=== PATIENT | male | born 1965 | race Caucasian/White ===

== ENCOUNTER 2017-04-17 09:50 | Outpatient (CLI) | payer BC ==
[~2017-04-17] VITALS: Ht 179.1 cm; Wt 124.5 kg
[2017-04-17 10:00] VITALS: BP 130/61; PULSE 77; RESP 18; Ht 179.1 cm; Wt 124.5 kg
[2017-04-17] MEDS ORDERED: ATOR10TA65 PO (10:11)
[2017-04-17] MEDS ORDERED: NEBI5TAB9 PO (10:11)
[2017-04-17] MEDS ORDERED: MONT10TA21 PO (10:11)
[2017-04-17] MEDS ORDERED: LISI20TA11 PO (10:11)
[2017-04-17] MEDS ORDERED: AMLO1TAB15 PO (10:11)
--- NOTE | 2017-04-17 11:34 | CONS ---
[facility] INITIAL OUTPATIENT CONSULTATION NOTE DATE OF CONSULTATION: 04/17/2017 PLACE OF SERVICE: [facility] IMPRESSION AND PLAN: A very pleasant 52-year-old gentleman with a few comorbidities including BMI of 38.8, presenting with an incidentally discovered gallbladder polyps which appeared to be multiple in number and the largest of which is 1.3 cm. I can count perhaps 2 polyps on the available images and there is no mention of the true number of polyps on the ultrasound report. It is also interesting that the patient has had multiple polyps removed from his nasal cavity. Note that he has not had a colonoscopy or upper endoscopy during his lifetime. I do believe that there is enough indication for patient undergoing an elective laparoscopic possible open cholecystectomy due to the multiplicity of the number of polyps that he has, and the size of 1.3 , which is by itself not a true indication, but because of the multiple polyps, it makes more of an argument for removal. I reassured the patient and family that despite these findings that my index of suspicion for a malignancy are extremely low in this situation. We also discussed the importance of colonoscopy since the patient is over the age of 50 and he has history of polyps in 2 places that we know. We should also potentially consider patient for upper endoscopy as well. Given the abdominal discomfort which I do not believe is coming from the gallbladder. Finally, I also counseled the patient and family regarding healthier lifestyle with a specific aim of bringing the BMI down to below 25. I described the various risks that are associated with having a high BMI and will do further counseling on this on their return after their surgery. I described the cholecystectomy operation in detail including the risks, benefits and alternatives and obtained the patient's consent for the operation. I answered all their questions to the best of my ability and I believe that they understood and agreed with the plans. With above assessment, I recommend the followin. Consider gastroenterology consultation for certainly colonoscopy that has surveillance as the main reason, but also because of the multiple areas of polyp formation that the patient has. There should also be a discussion about the risks and benefits of doing an upper endoscopy as well given the patient's symptoms and the polyp issue. 2. Schedule patient for laparoscopic, possible open, cholecystectomy to be done after above intervention by gastroenterology. 3. Aggressive change in lifestyle with the goal of bringing the BMI down to below 25. Thank you again for allowing us to participate in the care of this very pleasant gentleman and his wonderful family. If there are any questions, please feel free to contact me at [phone]. UPDATED CLINICAL SUMMARY: A very pleasant 52-year-old gentleman with a few comorbidities including BMI of 38.8, as well as hypertension and hyperlipidemia , who was found to have multiple gallbladder polyps, the largest of which is 1.3 cm, and was referred to us for management. COMORBIDITIES: 1. BMI 38.8. 2. Essential hypertension. 3. Mixed hyperlipidemia. 4. Other seasonal allergic rhinitis. 5. Pain in the left knee. 6. Pain in the right knee. 7. Status post appendectomy. 8. Status post removal of nasal polyps (multiple). 9. Possible fatty liver disease on US FAMILY HISTORY: Hypertension. The patient also reports history of heart disease in the family. HISTORY OF PRESENT ILLNESS: The patient is a very pleasant 52-year-old gentleman with above-mentioned comorbidities whom we were kindly asked to consult regarding management of his gallbladder polyps, which were discovered on an ultrasound of the abdomen that was done for mild abdominal discomfort on 04/09/2017, with discovery of multiple polyps, the largest of which was 1.3 cm. The patient also was seen to have enlarged fatty liver as well as nonvisualization of the pancreas and proximal and mid aorta due to his obesity. Note that his laboratory values were relatively unremarkable with normal liver numbers. He himself describes mild abdominal discomfort without any associated nausea, vomiting, fevers, chills, diarrhea, constipation or blood in the stool or urine. No other complaints. No other previous problems with his gallbladder or liver. ALLERGIES: NO KNOWN DRUG ALLERGIES. MEDICATIONS: 1. Lisinopril. 2. Exforge. 3. Lipitor. SOCIAL HISTORY: The patient works as a corporate logistics manager. They have 2 children , one of whom is mentally disabled. The patient does describe smoking in the past and he quit about 5 years ago. FAMILY HISTORY: There is history of hypertension in the family, but no other mention of major medical, surgical or oncologic problems. REVIEW OF SYSTEMS: Other than the above-mentioned, there are no other pertinent positives or pertinent negatives in a complete 14-point review of systems. PHYSICAL EXAMINATION: GENERAL: The patient appears to be a very pleasant gentleman of [place] descent, appearing stated age, sitting in a chair comfortably and in no acute distress. His BMI is 38.8. VITAL SIGNS: Temperature 98.1, blood pressure 130/61, pulse 77, respiratory rate 18, pulse oximetry 98% on room air. HEENT: Normocephalic and atraumatic. Extraocular muscles and hearing are grossly intact bilaterally and symmetrically. Sclerae are nonicteric. Oral cavity is clear; oral mucosa appeared to be pink and moist. Dentition: fair. NECK: Supple. There is no lymphadenopathy or JVD. There is no submental, submandibular or supraclavicular lymphadenopathy. CHEST: Rises symmetrically with each breath; patient is breathing comfortably. There are no audible wheezes, rales or rhonchi on the gross exam. HEART: Pulse is regular and palpable on the left wrist. Capillary refill was normal. Carotid pulses are palpable bilaterally and symmetrically in the neck. EXTREMITIES: Lower extremities contain no pitting edema around the ankles bilaterally and symmetrically. ABDOMEN: Abdomen is soft, nontender and nondistended. There are no peritoneal signs or guarding. No evidence of ascites, organomegaly, caput medusae, engorged subcutaneous veins, or other abnormalities. SKIN: Appears to be pink and feels warm to touch. NEUROLOGIC: Awake, alert, and follows commands appropriately. LABORATORY VALUES DATED 12/25/2016: Showed creatinine of 0.88, albumin 4.6, bilirubin 0.7, AST 21, ALT 23, alkaline phosphatase 65, triglycerides 112, platelet count 305. INR 1.1, PSA 1, hemoglobin A1c not available. IMAGING: Right upper quadrant ultrasound on 04/09/2017, with above-mentioned findings. Note that I personally reviewed all the available and pertinent images and I agree in general with their overall reported findings. Dictated By: MEAGHAN LACKEY/PAUL Conf#: [id number] DID#: [id number] PRUDENCIO
== END 2017-04-17 16:16 | disposition home or self-care (01) ==
LOC: HPC 09:50
PROVIDERS: ATTEND Transplant Surgery
DX: K82.4 Cholesterolosis of gallbladder (principal); E66.9 Obesity, unspecified; Z68.38 Body mass index [BMI] 38.0-38.9, adult; I10 Essential (primary) hypertension; E78.2 Mixed hyperlipidemia; Z87.891 Personal history of nicotine dependence; M25.562 Pain in left knee; M25.561 Pain in right knee
CPT/HCPCS: G0463